=== PATIENT | female | born 1975 | race Caucasian/White ===

== ENCOUNTER 2017-11-29 02:52 | Inpatient (IN) | payer OTHER ==
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
[2017-11-29 03:31] LABS: Basophils # (A) 0.1 k/uL (0-0.2); Basophils % (A) 0 %; Eosinophils # (A) 0.2 k/uL (0-0.7); Eosinophils % (A) 2 %; HCT 42.6 % (34.0-46.0); Lymphocytes # (A) 2.3 k/uL (1.0-4.8); Lymphocytes % (A) 22 %; MCHC 32.8 g/dL (31.0-37.0); MCV 97.4 fL (80.0-100.0); Mean Platelet Volume 7.6; Monocytes # (A) 0.4 k/uL (0-1.0); Monocytes % (A) 4 %; Neutrophils # (A) 7.5 k/uL (1.3-7.7); Neutrophils % (A) 71 %; Platelet Count 263 k/uL (150-450); RBC 4.37 m/uL (3.80-5.40); RDW 12.3 % (11.5-15.5); WBC 10.6 k/uL (3.8-10.6)
[2017-11-29 03:43] LABS: ALT 23 U/L (9-52); AST 30 U/L (14-36); Alkaline Phosphatase 57 U/L (38-126); Anion Gap 14 mmol/L; Blood Urea Nitrogen 7 mg/dL (7-17); Calcium 9.6 mg/dL (8.4-10.2); Carbon Dioxide 17 mmol/L (22-30); Chloride 111 mmol/L (98-107); Glucose 92 mg/dL (74-99); Potassium 3.9 mmol/L (3.5-5.1); Sodium 142 mmol/L (137-145); Total Bilirubin 0.5 mg/dL (0.2-1.3); Total Protein 8.1 g/dL (6.3-8.2)
[2017-11-29 03:45] LABS: Amphetamine Screen,Urine Not Detected (NotDetected); Barbiturate Screen,Urine Not Detected (NotDetected); Benzodiazepines Screen,Urine Not Detected (NotDetected); Cocaine Screen,Urine Not Detected (NotDetected); Methadone Screen, Urine Not Detected (NotDetected); Opiate Screen,Urine Not Detected (NotDetected); Oxycodone Screen, Urine Not Detected (NotDetected); Phencyclidine Screen,Urine Not Detected (NotDetected); Tricyclic Antidepressant,Urine Not Detected (NotDetected); Urn Cannabinoid Scrn Not Detected (NotDetected)
[2017-11-29 03:47] LABS: Alcohol 117 mg/dL
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
[2017-11-29] MEDS ORDERED: MAGNESIUM HYDROXIDE 2,400 MG/10 ML CUP PO PRN (15:30)
[2017-11-29] MEDS ORDERED: ACETAMINOPHEN TAB 325 MG TAB PO PRN (15:30)
[2017-11-29] MEDS ORDERED: MAG HYDROX/AL HYDROX/SIMETH 30 ML CUP PO PRN (15:30)
[2017-11-29 15:35] VITALS: BMI 23.3
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
[2017-11-29] MEDS: IBUPROFEN 800 MG TAB PO PRN (20:16)
[2017-11-30 07:03] VITALS: RESP 16
[2017-11-30 08:58] LABS: Anion Gap 7 mmol/L; Blood Urea Nitrogen 11 mg/dL (7-17); Calcium 9.5 mg/dL (8.4-10.2); Carbon Dioxide 24 mmol/L (22-30); Chloride 108 mmol/L (98-107); Creatine Kinase 86 U/L (30-135); Glucose 100 mg/dL (74-99); Potassium 4.2 mmol/L (3.5-5.1); Sodium 139 mmol/L (137-145)
[2017-11-30] MEDS: VENLAFAXINE HCL ER 37.5 MG CAP PO SCH (10:11)
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
[2017-11-30] MEDS: FOLIC ACID 1 MG TAB PO SCH (11:57)
[2017-11-30] MEDS: MULTIVITAMINS, THERA 1 EACH TAB PO SCH (11:57)
[2017-11-30] MEDS: THIAMINE 100 MG TAB PO SCH (11:57)
[2017-11-30 15:09] LABS: Appearance,Urine Clear (Clear); Bilirubin,Urine Negative (Negative); Blood,Urine Negative (Negative); Color,Urine Light Yellow; Glucose,Urine (UA) Negative (Negative); Ketones,Urine Negative (Negative); Leukocyte Esterase,Urine Trace (Negative); Nitrite,Urine Negative (Negative); PH, Urine 5.5 (5.0-8.0); Protein,Urine Negative (Negative); Specific Gravity,Urine 1.011 (1.001-1.035); Squamous Epithelial Cell,Urine 7 /hpf (0-4); Urobilinogen,Urine <2.0 mg/dL (<2.0); WBC,Urine 1 /hpf (0-5)
[2017-11-30] MEDS ORDERED: FLUCONAZOLE 150 MG TAB PO STA (17:32)
[2017-11-30] MEDS: IBUPROFEN 800 MG TAB PO PRN (19:06)
[2017-12-01 06:35] VITALS: BP 122/80; PULSE 78; TEMP 98.2
[2017-12-01] MEDS: VENLAFAXINE HCL ER 37.5 MG CAP PO SCH (10:02)
[2017-12-01] MEDS: THIAMINE 100 MG TAB PO SCH (12:10)
[2017-12-01] MEDS: FOLIC ACID 1 MG TAB PO SCH (12:10)
[2017-12-01] MEDS: MULTIVITAMINS, THERA 1 EACH TAB PO SCH (12:10)
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
== END 2017-12-01 15:47 | disposition home or self-care (01) | DRG 885 ==
LOC: EC 02:52 → 3MHU 14:52
PROVIDERS: ADMIT Psychiatry & Neurology Psychiatry; ATTEND Psychiatry & Neurology Psychiatry
DX: F33.1 Major depressive disorder, recurrent, moderate (principal); R45.851 Suicidal ideations; E87.2 Acidosis; T58.02XA Toxic effect of carbon monoxide from motor vehicle exhaust, intentional self-harm, initial encounter; N80.9 Endometriosis, unspecified; Z98.51 Tubal ligation status; F17.210 Nicotine dependence, cigarettes, uncomplicated; Z71.6 Tobacco abuse counseling; Z81.8 Family history of other mental and behavioral disorders
CPT/HCPCS: 36415; 71045; 80048; 80053; 80306; 80320; 81001; 81025; 82075; 82375; 82550; 84443; 85025; 87086; 99285

== ENCOUNTER 2020-08-05 23:17 | Emergency (ER) | payer OTHER ==
[2020-08-05] MEDS ORDERED: SODIUM CHLORIDE 0.9% 1,000 ML IV STA (23:26)
[2020-08-05] MEDS ORDERED: HYDROmorphone 1 MG/ML 1 ML SYRINGE IVP STA (23:26)
[2020-08-05] MEDS ORDERED: DIPH,PERTUS(ACELL)TETVAC-LF 0.5 ML VIAL IM ONE (23:27)
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
[2020-08-05 23:35] VITALS: BP 139/95; PULSE 74; RESP 20; TEMP 97.8
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
[2020-08-05 23:46] LABS: Basophils # (A) 0.1 k/uL (0-0.2); Basophils % (A) 0 %; Eosinophils # (A) 0.1 k/uL (0-0.7); Eosinophils % (A) 1 %; HCT 40.3 % (34.0-46.0); HGB 14.1 gm/dL (11.4-16.0); Lymphocytes % (A) 25 %; MCH 33.2 pg (25.0-35.0); MCHC 34.9 g/dL (31.0-37.0); MCV 95.3 fL (80.0-100.0); Mean Platelet Volume 7.8; Monocytes # (A) 0.4 k/uL (0-1.0); Monocytes % (A) 4 %; Neutrophils % (A) 68 %; Platelet Count 285 k/uL (150-450); RBC 4.23 m/uL (3.80-5.40); RDW 12.7 % (11.5-15.5); WBC 11.7 k/uL (3.8-10.6)
[2020-08-05 23:52] LABS: Appearance,Urine Clear (Clear); Bacteria,Urine Rare /hpf; Bilirubin,Urine Negative (Negative); Blood,Urine Small (Negative); Color,Urine Colorless; Glucose,Urine (UA) Negative (Negative); Ketones,Urine Negative (Negative); Leukocyte Esterase,Urine Negative (Negative); Nitrite,Urine Negative (Negative); Protein,Urine Trace (Negative); RBC,Urine 1 /hpf (0-5); Specific Gravity,Urine 1.002 (1.001-1.035); Squamous Epithelial Cell,Urine <1 /hpf (0-4); Urobilinogen,Urine <2.0 mg/dL (<2.0); WBC,Urine 1 /hpf (0-5)
[2020-08-05 23:56] LABS: ALT 14 U/L (4-34); AST 41 U/L (14-36); African American GFR (CKD) >90 (>60 ml/min/1.73 sqM); Albumin 4.8 g/dL (3.5-5.0); Alkaline Phosphatase 64 U/L (38-126); Anion Gap 13 mmol/L; Blood Urea Nitrogen 9 mg/dL (7-17); Calcium 9.5 mg/dL (8.4-10.2); Carbon Dioxide 21 mmol/L (22-30); Chloride 109 mmol/L (98-107); Creatine Kinase 94 U/L (30-135); Glucose 95 mg/dL (74-99); Non-African American GFR(CKD) >90 (>60 ml/min/1.73 sqM); Potassium 3.8 mmol/L (3.5-5.1); Sodium 143 mmol/L (137-145); Total Bilirubin 0.3 mg/dL (0.2-1.3); Total Protein 7.7 g/dL (6.3-8.2)
[2020-08-06] LABS: Alcohol 191 mg/dL
[2020-08-06 00:03] LABS: Amphetamine Screen,Urine Not Detected (NotDetected); Barbiturate Screen,Urine Not Detected (NotDetected); Benzodiazepines Screen,Urine Not Detected (NotDetected); Cocaine Screen,Urine Not Detected (NotDetected); Methadone Screen, Urine Not Detected (NotDetected); Opiate Screen,Urine Not Detected (NotDetected); Oxycodone Screen, Urine Not Detected (NotDetected); Phencyclidine Screen,Urine Not Detected (NotDetected); Tricyclic Antidepressant,Urine Not Detected (NotDetected); Urn Cannabinoid Scrn Not Detected (NotDetected)
[2020-08-06 00:05] LABS: INR 0.9 (<1.2); Partial Thromboplastin Time 24.1 sec (22.0-30.0); Prothrombin Time 9.5 sec (9.0-12.0)
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
[2020-08-06] MEDS ORDERED: MORPHINE SULFATE 4 MG/ML SYRINGE IVP STA (00:49)
[2020-08-06] MEDS ORDERED: KETOROLAC 15 MG/ML 1 ML VIAL IVP STA (00:49)
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
== END 2020-08-06 01:10 | disposition home or self-care (01) ==
LOC: EC 23:17
DX: S19.9XXA Unspecified injury of neck, initial encounter (principal); R10.9 Unspecified abdominal pain; F41.9 Anxiety disorder, unspecified; F32.9 Major depressive disorder, single episode, unspecified; V49.40XA Driver injured in collision with unspecified motor vehicles in traffic accident, initial encounter; Y92.410 Unspecified street and highway as the place of occurrence of the external cause
CPT/HCPCS: 36415; 93005; 86900; 86901; 80053; 82550; 83605; 84484; 85025; 85610; 85730; 86850; 81001; 81025; 80306; 80320; 72170; 73130; 71045; 72125; 70450; 71260; 74177; 99285; 96365; 96375 ×2; 96361; J0690; J1170; J1885; Q9967

== ENCOUNTER 2020-11-28 00:25 | Inpatient (IN) | payer OTHER ==
--- NOTE | 2020-11-28 01:08 | ED ---
Psych HPI - General Chief Complaint: Psychiatric Symptoms Stated Complaint: Mental Health Time Seen by Provider: 11/28/20 00:52 Source: EMS Mode of arrival: EMS - History of Present Illness MD Complaint: suicidal ideation, feels depressed Onset/Timin -: days(s) Associated Psychiatric Symptoms: depression, suicidal ideation History of same: Yes Quality: getting worse Improves With: none Worsens With: alcohol Context: recent alcohol abuse Associated Symptoms: denies other symptoms - Related Data Previous Rx's Medication Instructions Recorded Venlafaxine HCl ER [Effexor XR] 37.5 mg PO DAILY #14 cap.er.24h 12/01/17 Allergies Allergy/AdvReac Type Severity Reaction Status Date / Time No Known Allergies Allergy Verified 11/28/20 00:35 Review of Systems ROS Statement: Those systems with pertinent positive or pertinent negative responses have been documented in the HPI. ROS Other: All systems not noted in ROS Statement are negative. Constitutional: Denies: fever, chills Respiratory: Denies: cough, dyspnea Cardiovascular: Denies: chest pain, palpitations Gastrointestinal: Denies: abdominal pain, nausea, vomiting, diarrhea Genitourinary: Denies: dysuria, hematuria Musculoskeletal: Denies: back pain Skin: Denies: rash Neurological: Denies: headache, weakness, numbness Psychiatric: Reports: depression, suicidal thoughts. Denies: auditory hallucinations, visual hallucinations, homicidal thoughts Past Medical History Additional Past Medical History / Comment(s): endometriosis, History of Any Multi-Drug Resistant Organisms: None Reported Past Surgical History: Orthopedic Surgery, Tubal Ligation, Uterine Ablation Additional Past Surgical History / Comment(s): left foot 2013 Past Psychological History: Anxiety, Depression Smoking Status: Current every day smoker Past Alcohol Use History: Abuse, Daily Past Drug Use History: None Reported General Exam Limitations: no limitations General appearance: alert, in no apparent distress, appears intoxicated Head exam: Present: atraumatic, normocephalic Eye exam: Present: normal appearance. Absent: scleral icterus, conjunctival injection Respiratory exam: Present: normal lung sounds bilaterally. Absent: respiratory distress, wheezes, rales, rhonchi, stridor Cardiovascular Exam: Present: regular rate, normal rhythm, normal heart sounds. Absent: systolic murmur, diastolic murmur, rubs, gallop GI/Abdominal exam: Present: soft. Absent: distended, tenderness, guarding, rebound, rigid, mass Extremities exam: Present: normal inspection, normal capillary refill. Absent: pedal edema, calf tenderness Back exam: Present: normal inspection. Absent: CVA tenderness (R), CVA tenderness (L) Neurological exam: Present: alert Psychiatric exam: Present: depressed, suicidal ideation. Absent: agitated, anxious, flat affect, manic, homicidal ideation Skin exam: Present: warm, dry, intact, normal color. Absent: rash Course Vital Signs 11/28/20 11/28/20 00:27 03:00 Temperature 98.2 F Pulse Rate 85 78 Respiratory 16 18 Rate Blood Pressure 131/82 125/78 O2 Sat by Pulse 97 97 Oximetry Disposition Clinical Impression: Depression, Suicidal ideation Disposition: ADMITTED IP TO THIS HOSP Condition: Fair Is patient prescribed a controlled substance at d/c from ED?: No Referrals: None,Stated [Primary Care Provider] - 1-2 days
[2020-11-28] MEDS ORDERED: LORazepam 1 MG TAB PO STA (06:12)
[2020-11-28] MEDS ORDERED: ACETAMINOPHEN TAB 325 MG TAB PO STA (06:12)
[2020-11-28] MEDS ORDERED: ACETAMINOPHEN TAB 325 MG TAB PO PRN (06:29)
[2020-11-28] MEDS ORDERED: MAGNESIUM HYDROXIDE 2,400 MG/10 ML CUP PO PRN (06:29)
[2020-11-28] MEDS ORDERED: MAG HYDROX/AL HYDROX/SIMETH 30 ML CUP PO PRN (06:29)
[2020-11-28] MEDS ORDERED: LORazepam 1 MG TAB PO PRN (06:29)
[2020-11-28] MEDS ORDERED: LORazepam 2 MG/ML INJ IM PRN (06:33)
[2020-11-28] MEDS ORDERED: HALOPERIDOL LACTATE 5 MG/ML 1 ML VIAL IM PRN (06:34)
[2020-11-28] MEDS ORDERED: haloperidoL 5 MG TAB PO PRN (06:34)
[2020-11-28 06:51] LABS: Amphetamine Screen,Urine Not Detected (NotDetected); Barbiturate Screen,Urine Not Detected (NotDetected); Benzodiazepines Screen,Urine Not Detected (NotDetected); Cocaine Screen,Urine Not Detected (NotDetected); Methadone Screen, Urine Not Detected (NotDetected); Opiate Screen,Urine Not Detected (NotDetected); Oxycodone Screen, Urine Not Detected (NotDetected); Phencyclidine Screen,Urine Not Detected (NotDetected); Tricyclic Antidepressant,Urine Not Detected (NotDetected); Urn Cannabinoid Scrn Not Detected (NotDetected)
[2020-11-28 07:08] LABS: Appearance,Urine Clear (Clear); Bilirubin,Urine Negative (Negative); Blood,Urine Negative (Negative); Color,Urine Colorless; Glucose,Urine (UA) Negative (Negative); Ketones,Urine Negative (Negative); Leukocyte Esterase,Urine Negative (Negative); Nitrite,Urine Negative (Negative); Protein,Urine Negative (Negative); Specific Gravity,Urine 1.002 (1.001-1.035); Urobilinogen,Urine <2.0 mg/dL (<2.0)
[2020-11-28] MEDS: NICOTINE 14MG/24HR PATCH TRANSDERM SCH (08:59)
[2020-11-28] MEDS ORDERED: DULoxetine HCL 60 MG CAPSULE.DR PO SCH (09:00)
[2020-11-28] MEDS ORDERED: DULoxetine HCL 30 MG CAPSULE.DR PO SCH (11:32)
[2020-11-28] MEDS ORDERED: DULoxetine HCL 30 MG CAPSULE.DR PO STA (12:08)
[2020-11-28] MEDS: OLANZapine 5 MG TAB PO SCH ×3 (12:28→21:34)
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
[2020-11-29 07:27] LABS: Basophils % (A) 0 %; Eosinophils # (A) 0.1 k/uL (0-0.7); Eosinophils % (A) 1 %; HCT 42.4 % (34.0-46.0); HGB 14.5 gm/dL (11.4-16.0); Lymphocytes # (A) 2.4 k/uL (1.0-4.8); Lymphocytes % (A) 25 %; MCH 33.8 pg (25.0-35.0); MCHC 34.2 g/dL (31.0-37.0); MCV 98.7 fL (80.0-100.0); Mean Platelet Volume 8.5; Monocytes # (A) 0.5 k/uL (0-1.0); Monocytes % (A) 5 %; Neutrophils # (A) 6.4 k/uL (1.3-7.7); Neutrophils % (A) 67 %; Platelet Count 264 k/uL (150-450); RDW 12.9 % (11.5-15.5); WBC 9.6 k/uL (3.8-10.6)
[2020-11-29 07:53] LABS: ALT 8 U/L (4-34); AST 23 U/L (14-36); African American GFR (CKD) >90 (>60 ml/min/1.73 sqM); Albumin 4.3 g/dL (3.5-5.0); Alkaline Phosphatase 58 U/L (38-126); Anion Gap 8 mmol/L; Blood Urea Nitrogen 15 mg/dL (7-17); Calcium 9.6 mg/dL (8.4-10.2); Carbon Dioxide 23 mmol/L (22-30); Chloride 109 mmol/L (98-107); Glucose 103 mg/dL (74-99); Non-African American GFR(CKD) >90 (>60 ml/min/1.73 sqM); Potassium 4.3 mmol/L (3.5-5.1); Sodium 140 mmol/L (137-145); Total Bilirubin 0.7 mg/dL (0.2-1.3); Total Protein 6.9 g/dL (6.3-8.2)
[2020-11-29] MEDS: DULoxetine HCL 30 MG CAPSULE.DR PO SCH (08:26)
[2020-11-29] MEDS: NICOTINE 14MG/24HR PATCH TRANSDERM SCH (08:26)
[2020-11-29] MEDS: OLANZapine 5 MG TAB PO SCH ×3 (08:27→20:58)
[2020-11-29] MEDS: THIAMINE 100 MG TAB PO SCH (08:27)
[2020-11-29] MEDS ORDERED: DULoxetine HCL 60 MG CAPSULE.DR PO SCH (09:00)
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
[2020-11-30] MEDS: THIAMINE 100 MG TAB PO SCH (08:59)
[2020-11-30] MEDS: OLANZapine 5 MG TAB PO SCH (08:59)
[2020-11-30] MEDS: NICOTINE 14MG/24HR PATCH TRANSDERM SCH (09:00)
[2020-11-30] MEDS: DULoxetine HCL 30 MG CAPSULE.DR PO SCH (09:00)
[2020-11-30] MEDS ORDERED: NALTREXONE HCL 50 MG TAB PO STA (09:39)
--- NOTE | 2020-11-30 09:57 | P.PN ---
Progress Note - Text Progress Note Date: 11/30/20 Interval History: Patient was seen reading the Bible in the lounge and was directable and agreeable to speak with com writer in the office. The patient does acknowledge that prior to this admission, she was feeling increasingly suicidal in the context of heavy alcohol use and marital stressors. She reports that she was able to speak with over the weekend and they have agreed that they will both attend couples counseling. She does express that she felt like her and her were clashing over things such as money and social life. Prior to this admission, the patient was addressing her stressors with alcohol. She reports that she would drink a whole bottle of wine or 6 beers per night. Patient does acknowledge that alcohol use is excessive. She is agreeable at this time to start naltrexone to address her alcohol use disorder. Patient does report that overall her mood is slightly improved but that she does feel concerned about going home at this time she feels anxious and "not ready." She has been adherent with her medications but endorses sedation as a side effect. She is agreeable to decreasing her Zyprexa today. Mental Status Exam: General Appearance: Patient appears to be stated age is alert, directable, and cooperative. Good hygiene and grooming. Patient is wearing glasses. Behavior: Patient is calmly seated without any agitated behavior. Psychomotor activity is normal. Speech: Patient's speech is fluent and nonpressured. Speech is spontaneous but monotone and low in volume. Mood/Affect: Mood is slightly anxious and depressed, and affect is congruent and constricted. Suicidality/Homicidality: Patient denies having any suicidal or homicidal ideation intent or plan. Perceptions: Patient denies any visual hallucinations and denies any auditory hallucinations Though content/process: There is no evidence of any delusional thought content and thought process is linear and goal-directed. Memory and concentration: AOX3, grossly intact for the purposes of this session Judgment and insight: Improving mildly Vital Signs Temp 98.2 F 11/30/20 06:47 Pulse 77 11/30/20 06:47 Resp 16 11/30/20 06:47 BP 128/85 11/30/20 06:47 Pulse Ox 96 11/28/20 07:03 Intake & Output 11/29/20 11/30/20 11/30/20 18:59 06:59 18:59 Weight 81.4 kg Laboratory Results - Last 24 Hours 11/29/20 06:[address] Glu mg/dL 85 Hemoglobin A1c 4.6 Assessment Major depressive disorder, recurrent, severe Alcohol use disorder Nicotine dependence Plan: -Patient continues to meet criteria for inpatient psychiatric admission for symp amanda stabilization and safety. Patient has signed adult voluntary form and medication consent and was placed in patient's chart. -Medications: Continue Cymbalta 90 mg by mouth daily for depression Decrease Zyprexa to 5 mg by mouth at bedtime for mood augmentation Start naltrexone 50 mg by mouth daily for alcohol cessation -When necessary Ativan and Haldol for agitation/aggression. -NRT - nicotine patch -SW on board for discharge planning. Encouraged the patient to participate in milieu.
[2020-11-30] MEDS ORDERED: OLANZapine 5 MG TAB PO SCH (21:00)
[2020-12-01 06:47] VITALS: RESP 14; TEMP 97.4
[2020-12-01 06:54] VITALS: BP 119/68; PULSE 67
[2020-12-01] MEDS: THIAMINE 100 MG TAB PO SCH (08:25)
[2020-12-01] MEDS: DULoxetine HCL 30 MG CAPSULE.DR PO SCH (08:25)
[2020-12-01] MEDS: NICOTINE 14MG/24HR PATCH TRANSDERM SCH (08:25)
[2020-12-01] MEDS ORDERED: NALTREXONE HCL 50 MG TAB PO SCH (09:00)
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
== END 2020-12-01 13:30 | disposition home or self-care (01) | DRG 885 ==
LOC: EC 00:25 → 3MHU 06:11
PROVIDERS: ADMIT Psychiatry & Neurology Psychiatry; ATTEND Psychiatry & Neurology Psychiatry
DX: F33.2 Major depressive disorder, recurrent severe without psychotic features (principal); G25.9 Extrapyramidal and movement disorder, unspecified; R45.851 Suicidal ideations; F17.210 Nicotine dependence, cigarettes, uncomplicated; Z71.6 Tobacco abuse counseling; Z71.41 Alcohol abuse counseling and surveillance of alcoholic; F10.10 Alcohol abuse, uncomplicated; Z20.822 Contact with and (suspected) exposure to COVID-19; F22 Delusional disorders; F43.10 Post-traumatic stress disorder, unspecified; F41.0 Panic disorder [episodic paroxysmal anxiety]; Z79.899 Other long term (current) drug therapy; Z62.819 Personal history of unspecified abuse in childhood
CPT/HCPCS: 80053; 80306; 81003; 81025; 82075; 83036; 84443; 85025; 87635; 99285

== ENCOUNTER 2021-05-29 22:55 | Inpatient (IN) | payer OTHER ==
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
[2021-05-30 01:32] LABS: Appearance,Urine Clear (Clear); Bilirubin,Urine Negative (Negative); Blood,Urine Negative (Negative); Color,Urine Colorless; Glucose,Urine (UA) Negative (Negative); Ketones,Urine Negative (Negative); Leukocyte Esterase,Urine Negative (Negative); Nitrite,Urine Negative (Negative); PH, Urine 5.5 (5.0-8.0); Protein,Urine Negative (Negative); Specific Gravity,Urine 1.002 (1.001-1.035); Urobilinogen,Urine <2.0 mg/dL (<2.0)
[2021-05-30 01:40] LABS: Amphetamine Screen,Urine Not Detected (NotDetected); Barbiturate Screen,Urine Not Detected (NotDetected); Benzodiazepines Screen,Urine Not Detected (NotDetected); Cocaine Screen,Urine Not Detected (NotDetected); Methadone Screen, Urine Not Detected (NotDetected); Opiate Screen,Urine Not Detected (NotDetected); Oxycodone Screen, Urine Not Detected (NotDetected); Phencyclidine Screen,Urine Not Detected (NotDetected); Tricyclic Antidepressant,Urine Not Detected (NotDetected); Urn Cannabinoid Scrn Not Detected (NotDetected)
[2021-05-30] MEDS ORDERED: MAG HYDROX/AL HYDROX/SIMETH 30 ML CUP PO PRN (04:45)
[2021-05-30] MEDS ORDERED: MAGNESIUM HYDROXIDE 2,400 MG/10 ML CUP PO PRN (04:45)
[2021-05-30] MEDS ORDERED: HALOPERIDOL LACTATE 5 MG/ML 1 ML VIAL IM PRN (04:45)
[2021-05-30] MEDS ORDERED: ACETAMINOPHEN TAB 325 MG TAB PO PRN (04:45)
[2021-05-30] MEDS ORDERED: LORazepam 2 MG/ML INJ IM PRN (04:48)
[2021-05-30] MEDS ORDERED: haloperidoL 5 MG TAB PO PRN (04:49)
[2021-05-30] MEDS: DULoxetine HCL 30 MG CAPSULE.DR PO SCH (08:51)
[2021-05-30] MEDS: NICOTINE 14MG/24HR PATCH TRANSDERM SCH (08:51)
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
[2021-05-30] MEDS: LORazepam 1 MG TAB PO PRN (21:45)
[2021-05-31] MEDS ORDERED: THIAMINE 100 MG/ML 2 ML VIAL IM STA (00:45)
--- NOTE | 2021-05-31 00:46 | P.CONS ---
History of Present Illness - Reason for Consult Consult date: 05/31/21 - History of Present Illness Patient is a 45-year-old female with a PMH of EtOH abuse who presented to the emergency room with complaints of depression and suicidal ideation. Patient was admitted to the mental health unit where she was seen and evaluated. The patient reports that she has been suffering with alcohol abuse for the past several years, and has now gotten tired of the way her life has been going, which prompted her on planning to attempt suicide by shooting herself with one of her guns. The patient reports drinking 8-10 beers a day although she continues to work full-time and considers himself highly functional. She denied any physical complaints at time of interview. She denied chest discomfort, shortness of cough, chills, cough, nausea, vomiting, abdominal area. She denied ever undergoing alcohol withdrawal requiring hospitalization for her drinking. Review of systems: Pertinent positives and negatives as discussed in HPI, a complete review of systems was performed and all other systems are negative. Physical examination: General: non toxic, no distress, appears at stated age, overweight Derm: no unusual rashes/lesions no unusual ecchymoses, warm, dry Head: atraumatic, normocephalic, symmetric Eyes: EOMI, no lid lag, anicteric sclera, pupils equal round reactive to light ENT: Nose and ears atraumatic, no thrush, no pharyngeal erythema Neck: No thyromegaly, no cervical lymphadenopathy, trachea midline, supple Mouth: no lip lesion, mucus membranes moist Cardiovascular: S1S2 reg, no murmur, positive posterior tibial pulse bilateral, no edema, capillary refill less than 2 seconds Lungs: CTA bilateral, no rhonchi, no rales , no accessory muscle use Abdominal: soft, nontender to palpation, no guarding, no appreciable organomegaly, normal bowel sounds Ext: no gross muscle atrophy, muscle strength 5 out of 5 in all 4 extremities grossly, no contractures, Neuro: CN II-XI grossly intact, light touch intact all 4 extremities, finger to nose within normal limits, Psych: Alert, oriented, appropriate affect Assessment/plan Alcohol abuse -Advised on importance of cessation -Continue with thiamine with CIWA protocol Depression and suicidal ideation -As per psychiatry Thank you for allowing us to participate in the care of this patient. We will follow peripherally. Do not hesitate to contact us with questions. Someone can be reached from the [facility] hospitalist group at all hours of the day at [phone]. Past Medical History Additional Past Medical History / Comment(s): endometriosis, History of Any Multi-Drug Resistant Organisms: None Reported Past Surgical History: Orthopedic Surgery, Tubal Ligation, Uterine Ablation Additional Past Surgical History / Comment(s): left foot 2013 Past Psychological History: Anxiety, Depression Smoking Status: Current every day smoker Past Alcohol Use History: Abuse, Daily, Heavy Past Drug Use History: None Reported - Past Family History Father Family Medical History: Liver Disease Medications and Allergies Home Medications Medication Instructions Recorded Confirmed Type DULoxetine HCL [Cymbalta] 90 mg PO DAILY 30 Days capsule 12/01/20 05/30/21 Rx Naltrexone HCl [Revia] 50 mg PO DAILY 30 Days tab 12/01/20 05/30/21 Rx Nicotine 14Mg/24Hr Patch [Habitrol] 1 patch TRANSDERM DAILY 30 Days 12/01/20 05/30/21 Rx patch OLANZapine [ZyPREXA] 5 mg PO HS 30 Days tab 12/01/20 05/30/21 Rx Allergies Allergy/AdvReac Type Severity Reaction Status Date / Time No Known Allergies Allergy Verified 05/30/21 04:51 Physical Exam Vitals: Vital Signs Temp Pulse Resp BP Pulse Ox 05/30/21 04:52 97.7 F 78 15 121/77 95 Intake and Output 05/30/21 05/30/21 05/31/21 14:59 22:59 06:59 Other: Weight 83.9 kg
[2021-05-31] MEDS: THIAMINE 100 MG TAB PO SCH ×2 (01:59→09:06)
[2021-05-31 06:54] VITALS: RESP 14
[2021-05-31 08:27] LABS: HCG,Qualitative Serum Not Detected
[2021-05-31 08:33] LABS: Basophils % (A) 0 %; Eosinophils # (A) 0.1 k/uL (0-0.7); Eosinophils % (A) 2 %; HCT 44.5 % (34.0-46.0); HGB 14.7 gm/dL (11.4-16.0); Lymphocytes # (A) 2.6 k/uL (1.0-4.8); Lymphocytes % (A) 31 %; MCH 33.4 pg (25.0-35.0); MCHC 33.1 g/dL (31.0-37.0); MCV 100.9 fL (80.0-100.0); Mean Platelet Volume 8.5; Monocytes # (A) 0.4 k/uL (0-1.0); Monocytes % (A) 4 %; Neutrophils # (A) 5.1 k/uL (1.3-7.7); Neutrophils % (A) 61 %; Platelet Count 322 k/uL (150-450); RBC 4.41 m/uL (3.80-5.40); RDW 12.6 % (11.5-15.5); WBC 8.4 k/uL (3.8-10.6)
[2021-05-31 08:38] LABS: ALT 9 U/L (4-34); AST 24 U/L (14-36); African American GFR (CKD) >90 (>60 ml/min/1.73 sqM); Albumin 4.6 g/dL (3.5-5.0); Alkaline Phosphatase 63 U/L (38-126); Anion Gap 8 mmol/L; Blood Urea Nitrogen 10 mg/dL (7-17); Calcium 9.2 mg/dL (8.4-10.2); Carbon Dioxide 25 mmol/L (22-30); Chloride 104 mmol/L (98-107); Glucose 109 mg/dL (74-99); Non-African American GFR(CKD) >90 (>60 ml/min/1.73 sqM); Potassium 4.1 mmol/L (3.5-5.1); Sodium 137 mmol/L (137-145); Total Bilirubin 1.1 mg/dL (0.2-1.3); Total Protein 7.6 g/dL (6.3-8.2)
[2021-05-31] MEDS: NICOTINE 14MG/24HR PATCH TRANSDERM SCH (09:05)
[2021-05-31] MEDS: DULoxetine HCL 30 MG CAPSULE.DR PO SCH (09:05)
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
[2021-05-31] MEDS: NALTREXONE HCL 50 MG TAB PO SCH (12:46)
[2021-05-31] MEDS: LORazepam 1 MG TAB PO PRN (16:29)
[2021-05-31] MEDS ORDERED: MELATONIN 3 MG TABLET PO SCH (21:00)
[2021-05-31] MEDS ORDERED: PRAZOSIN 1 MG CAP PO SCH (21:00)
[2021-06-01 06:06] VITALS: BP 121/68; PULSE 66; TEMP 97.5
[2021-06-01] MEDS: NALTREXONE HCL 50 MG TAB PO SCH (08:53)
[2021-06-01] MEDS: THIAMINE 100 MG TAB PO SCH (08:53)
[2021-06-01] MEDS: NICOTINE 14MG/24HR PATCH TRANSDERM SCH (08:53)
[2021-06-01] MEDS ORDERED: DULoxetine HCL 60 MG CAPSULE.DR PO SCH (09:00)
[2021-06-01] MEDS ORDERED: FOLIC ACID 1 MG TAB PO SCH (09:00)
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
== END 2021-06-01 15:50 | disposition home or self-care (01) | DRG 885 ==
LOC: EC 22:55 → 3MHU 05-30 04:31
PROVIDERS: ADMIT Psychiatry & Neurology Psychiatry; ATTEND Psychiatry & Neurology Psychiatry
DX: F31.30 Bipolar disorder, current episode depressed, mild or moderate severity, unspecified (principal); F10.239 Alcohol dependence with withdrawal, unspecified; R45.851 Suicidal ideations; F17.210 Nicotine dependence, cigarettes, uncomplicated; F43.10 Post-traumatic stress disorder, unspecified; Z62.810 Personal history of physical and sexual abuse in childhood; Z79.899 Other long term (current) drug therapy; Z91.51 Personal history of suicidal behavior; F51.5 Nightmare disorder; Z98.51 Tubal ligation status; Z71.41 Alcohol abuse counseling and surveillance of alcoholic; Z71.89 Other specified counseling; Z20.822 Contact with and (suspected) exposure to COVID-19
CPT/HCPCS: 80053; 80306; 81003; 82075; 83036; 84443; 84703; 85025; 87635; 99285